=== PATIENT | male | born 1970 | race Caucasian/White ===

== ENCOUNTER 2020-02-29 06:56 | Outpatient (CLI) | payer MEDICAID, SELFPAY ==
[2020-02-29 07:29] LABS: Hematocrit 41.8 % (42.0-52.0); Hemoglobin 13.9 g/dL (14.0-18.0); Mean Corpuscular HGB Conc 33.3 g/dl (32-36); Mean Corpuscular Hemoglobin 27.3 pg (26-34); Mean Platelet Volume 9.8 fl (7.4-10.4); Platelet Count Result 272 k/mm3 (150-375); White Blood Count 11.6 K/mm3 (4.5-10.0)
[2020-02-29 07:40] LABS: Alanine Aminotransferase 29 U/L (4-50); Albumin Level 4.2 g/dL (3.5-5.1); Alkaline Phosphatase 111 U/L (38-126); Anion Gap 7 mmol/L (8-16); Aspartate Amino Transferase 25 U/L (17-59); Bilirubin,Total 0.4 mg/dL (0.2-1.3); Blood Urea Nitrogen 16 mg/dL (9-20); Calcium 9.6 mg/dL (8.4-10.2); Carbon Dioxide 30 mmol/L (22-30); Chloride 99 mmol/L (98-107); Cholesterol 141 mg/dL (0-200); Estimated Glomerular Filt Rate > 60; Glucose 111 mg/dL (75-110); HDL Direct 31 mg/dL; Potassium 4.5 mmol/L (3.4-5.0); Sodium 136 mmol/L (137-145); Triglycerides 84 mg/dL (<150)
[2020-02-29 07:51] LABS: LDL Cholesterol Direct 97 mg/dL
== END 2020-02-29 06:57 | disposition home or self-care (01) ==
PROVIDERS: PCP Family Medicine; Visit Provider Nurse Practitioner Family
DX: E78.2 Mixed hyperlipidemia (principal); I10 Essential (primary) hypertension
CPT/HCPCS: 36415; 80053; 80061; 84443; 85027

== ENCOUNTER 2020-03-12 21:50 | Observation (INO) | payer MEDICAID, SELFPAY ==
--- NOTE | ~2020-03-12 | US_ITS ---
EXAMINATION: US venous doppler [facility] DATE: 03/13/2020 08:59 INDICATION: Left lower limb pain TECHNIQUE: Grayscale ultrasound images without and with compression and Doppler ultrasound images of the left lower extremity veins were obtained. COMPARISON: None. FINDINGS: The visualized portions of left common femoral vein, profunda (deep) femoral vein, femoral vein, popl iteal vein, peroneal veins, posterior tibial veins, gastrocnemius vein and greater saphenous vein out flow are patent. Sensitivity is more limited in the veins of the calf as patient would not tolerate c ompression imaging. Subcutaneous edema at the left calf. IMPRESSION: 1. No deep venous thrombosis in the left lower limb. Reviewed, dictated and finalized at location A.
[2020-03-12 21:51] VITALS: BP 122/64; PULSE 122; RESP 20; TEMP 36.8; O2SAT 98
[2020-03-12 22:56] VITALS: BP 124/87; PULSE 120; RESP 24; O2SAT 97
--- NOTE | 2020-03-12 22:59 | ED.GENADULT ---
HPI - General Adult General Chief complaint: Extremity Injury, Lower Stated complaint: bilateral leg pain, cellulitis Time Seen by Provider: 03/12/20 22:37 Source: RN notes reviewed History of Present Illness HPI narrative: Patient presents to emergency department from home for left leg redness. Patient states that he has a history of cellulitis and lymphedema in his left lower extremity. Patient states that starting yesterday began to have redness and swelling in his left leg is progressively worsening with pain in the leg. He states that the redness goes from the ankle up just below the knee denies any fevers or chills chest pain shortness of breath or any other symptoms. States that current symptoms are similar to previous episodes of cellulitis Related Data Allergies Allergy/AdvReac Type Severity Reaction Status Date / Time metronidazole Allergy Unknown Unknown Verified 02/22/20 10:48 Cat Dander Allergy Unknown Wheezing Uncoded 10/23/19 09:01 Review of Systems Review of Systems: Narrative: Gen.: Denies fevers or chills ENT: Denies congestion Respiratory: Denies shortness of breath or cough CV: Denies chest pain or palpitations GI: Denies abdominal pain nausea, emesis or diarrhea Musculoskeletal: Denies back pain or muscle pain Neuro: Denies numbness, tingling, weakness or focal weakness Skin: See HPI Except as documented, all other systems reviewed and negative PMF Past Medical History Medical History (Updated 03/13/20 @ 00:26 by Brandon Montemayor DO) Essential hypertension Lymphedema Family History Family History Grandparent Cerebrovascular accident Father Family history of heart disease in male family member before age 55 Other Diabetes mellitus Family history of cardiovascular disease Social History Social History Smoking status: Never smoker Alcohol intake: current Exam Narrative: Exam Narrative: APPEARANCE: No acute distress, nontoxic, resting in bed EYES: EOMI HEENT: Normocephalic, atraumatic, OMM RESPIRATORY: No respiratory distress Clear to auscultation bilaterally with no rhonchi wheezing or rales. CARDIOVASCULAR: Regular rate and rhythm without murmurs rubs or gallops. ABDOMINAL: Soft, nontender, nondistended, no rebound or guarding MUSCULOSKELETAl: Moves all extremities. No clubbing, cyanosis there is 4+ edema the left lower extremity erythema just distal to the left knee down to the ankle that is circumferential no drainage, dorsalis pedis pulse 2+, neurovascular intact NEURO: Awake and alert. Following commands, speech normal, no focal deficits SKIN:: Warm, dry. No rashes lesions or abrasions PSYCHIATRIC: Normal affect/mood, Course Course Emergency Course: Discussed with Dr. Orta presentation work-up. Agrees with admission at this time Discussed with patient and family results of workup and diagnosis. Discussed need for admission. Patient and family understand and agree to current treatment plan Vital Signs Vital signs: Vital Signs Temperature 98.2 F 03/12/20 21:51 Pulse Rate 122 H 03/12/20 21:51 Respiratory Rate 20 03/12/20 21:51 Blood Pressure 122/64 03/12/20 21:51 Pulse Oximetry 98 03/12/20 21:51 Temperature 98.2 F 03/12/20 21:51 Pulse Rate 120 H 03/12/20 22:56 Respiratory Rate 24 H 03/12/20 22:56 Blood Pressure 124/87 03/12/20 22:56 Pulse Oximetry 97 03/12/20 22:56 Medical Decision Making Vital Signs Vital Signs: Vital Signs Temperature 98.2 F 03/12/20 21:51 Pulse Rate 122 H 03/12/20 21:51 Respiratory Rate 20 03/12/20 21:51 Blood Pressure 122/64 03/12/20 21:51 Pulse Oximetry 98 03/12/20 21:51 Temperature 98.2 F 03/12/20 21:51 Pulse Rate 120 H 03/12/20 22:56 Respiratory Rate 24 H 03/12/20 22:56 Blood Pressure 124/87 03/12/20 22:56 Pulse Oximetry 97 03/12/20 22:56 Lab Data Result
[2020-03-12] MEDS: SODIUM CHLORIDE 0.9% IV 1,000 ML 999 ML IV CONT (23:36)
[2020-03-12 23:43] LABS: Lactic Acid Reflex 1.2 mmol/L (0.7-2.1)
[2020-03-12 23:43] LABS: Alanine Aminotransferase 32 U/L (4-50); Albumin Level 4.2 g/dL (3.5-5.1); Alkaline Phosphatase 99 U/L (38-126); Anion Gap 11 mmol/L (8-16); Aspartate Amino Transferase 25 U/L (17-59); Bilirubin,Total 0.5 mg/dL (0.2-1.3); Blood Urea Nitrogen 21 mg/dL (9-20); Calcium 9.4 mg/dL (8.4-10.2); Carbon Dioxide 23 mmol/L (22-30); Chloride 100 mmol/L (98-107); Estimated CRCL calculation 225 ml/min; Estimated Glomerular Filt Rate > 60; Glucose 129 mg/dL (75-110); Potassium 4.5 mmol/L (3.4-5.0); Sodium 134 mmol/L (137-145)
[2020-03-12 23:44] LABS: Basophils Absolute Auto 0.1 K/mm3 (0.0-0.1); Basophils Percent Auto 0.2 % (0.2-1.2); Eosinophils Percent Auto 0.1 % (0-4.4); Hematocrit 40.8 % (42.0-52.0); Hemoglobin 13.5 g/dL (14.0-18.0); Immature Granulocyte Absolute 0.18 K/mm3 (0.00-0.031); Immature Granulocyte Percent A 0.7 % (0-0.5); Lymphocytes Absolute Auto 0.98 K/mm3 (0.9-3.2); Lymphocytes Percent Auto 3.6 % (18.3-44.2); Mean Corpuscular HGB Conc 33.1 g/dl (32-36); Mean Corpuscular Hemoglobin 27.5 pg (26-34); Mean Corpuscular Volume 83.1 fl (80-100); Mean Platelet Volume 10.6 fl (7.4-10.4); Monocytes Absolute Auto 1.3 K/mm3 (0.1-0.6); Neutrophils Absolute Auto 24.4 K/mm3 (1.3-6.7); Neutrophils Percent Auto 90.4 % (45.5-73.1); Platelet Count Result 284 k/mm3 (150-375); Red Blood Count 4.91 M/mm3 (4.6-6.20); Red Cell Distribution Width 15.2 % (11.5-14.5)
[2020-03-12 23:47] LABS: INR 1.1; Prothrombin Time 14.1 Seconds (11.1-14.7)
[2020-03-12 23:48] LABS: Partial Thromboplastin Time 28.7 SECONDS (22.3-36.8)
[2020-03-13] VITALS (13 sets, daily range): BP systolic 99–146; BP diastolic 58–81; PULSE 77–118; RESP 16–22; TEMP 35.8–37.2; O2SAT 92–100; BMI 72.7
--- NOTE | 2020-03-13 00:05 | ECG_ITS ---
Measurements Intervals [place] Rate: 108 P: 20 KS: 150 QRS: 24 QRSD: 113 T: 12 QT: 346 QTc: 464 Interpretive Statements SINUS TACHYCARDIA LOW QRS VOLTAGE IN PRECORDIAL LEADS MINIMAL Q WAVES- DIFFUSE LEADS ABNORMAL ECG Electronically Signed On 03-14-2020 14:01:33 CDT by Raymond Vaughn D.O.
--- NOTE | 2020-03-13 00:10 | PC.NURSE ---
assuming care of pt at this time, received report from renea larson
--- NOTE | 2020-03-13 01:09 | PM.IMHP ---
H&P: HPI History of Present Illness Date/Time: 03/13/20 01:09 Chief complaint: sepsis, L LE cellulitis Narrative: This is a 49 year old morbidly obese male with known history of chronic lymphedema and previous cellulitis who presented to the [facility] with a complaint of left lower extremity redness, pain, and worsening swelling over the past 2 days. The patient reports that he fell asleep in a recliner in the garage 2 days ago and when he woke up his left lower extremity was more red and swollen. He believes that the back of his LLE became more inflamed because of the weight of his leg that was compressing it. He also reports that he put a heating pad on his leg. He denies any fevers, chills, nausea, vomiting, diarrhea or other symptoms. Routine labs demonstrated an elevated WBC. The patient was started on IV ancef and we have been asked to admit him to the hospital for possible cellulitis. No other complaints. Review of Systems Review of Systems: All systems reviewed & are unremarkable except as noted in HPI and below PMFSH Past Medical History Medical History Asthma Essential hypertension Lymphedema Obstructive sleep apnea Tobacco dependence Family History Family History Grandparent Cerebrovascular accident Father Family history of heart disease in male family member before age 55 Other Diabetes mellitus Family history of cardiovascular disease Social History Social History Smoking status: Current every day smoker Alcohol intake: never Substance use: current Substance use type: marijuana Gender identity (if verbalized by the patient): Male Spiritual care concerns: No Comments past surgical history reviewed and noncontributory. Meds Home Medications and Allergies Home Medications Medication Instructions Recorded Confirmed Type albuterol sulfate 90 mcg/actuation 2 puff INHALATION Q4-6H PRN #8.5 gm 08/04/19 03/13/20 Rx aerosol inhaler lisinopril 40 mg tablet 40 mg PO DAILY #90 tablet 10/20/19 03/13/20 Rx tamsulosin 0.4 mg capsule 0.4 mg PO DAILY #30 cap 10/20/19 03/13/20 Rx furosemide 40 mg tablet 40 mg PO QAM #90 tablet 01/06/20 03/13/20 Rx ibuprofen 800 mg tablet 800 mg PO TID #90 tablet 02/01/20 03/13/20 Rx hydrocodone 5 mg-acetaminophen 325 1 tablet PO Q12H PRN #60 tablet 02/29/20 03/13/20 Rx mg tablet albuterol sulfate 2.5 mg INHALATION BID 03/13/20 03/13/20 History compression socks, x-large #2 ea 03/14/20 Rx Allergies Allergy/AdvReac Type Severity Reaction Status Date / Time metronidazole Allergy Unknown Unknown Verified 02/22/20 10:48 Cat Dander Allergy Unknown Wheezing Uncoded 10/23/19 09:01 Vital Signs Vital Signs - 24 hr 03/12/20 21:51 03/12/20 22:56 03/13/20 01:01 Temperature 36.8 C Pulse Rate 122 H 120 H 117 H Respiratory Rate 20 24 H 18 Blood Pressure 122/64 124/87 131/75 Pulse Oximetry 98 97 99 Exam Const: General: cooperative, no acute distress, alert, awake and ill appearing chronically Nutritional Appearance: obese morbidly obese Orientation/consciousness: patient oriented x3 HENMT: Head: normal to inspection General nose exam: Normal external nose present Face and sinus: normal facial exam Mouth: Yes Normal oral and palatal mucosa present and Yes oropharynx normal Eyes: Pupils: Equal, round and reactive pupils present EOM: EOMs intact bilaterally Neck: Neck: supple and no JVD Thyroid: thyroid normal Lymphatic: lymphedema (b/l lower extremities++ ) Resp: Effort & Inspection: normal respiratory effort Auscultation: clear to auscultation bilaterally Cardio: Rate: regular rate Rhythm: regular rhythm Heart sounds: no murmurs GI: Inspection: normal to inspection Auscultation: normal bowel sounds Skin: General skin exam: erythema (LLE++ ) Lesions: other (healin
--- NOTE | 2020-03-13 01:37 | ADMGEN ---
This patient, Ole Kilgore, was admitted to Medical Room 260- 0130. Patient/family oriented to hospital policies and general routines including ID bracelet, bed and alarms, visiting hours, pain management, procedures, bathroom and other care routines, personal items, smoking policy, room service/diet, and visiting hours. Information on how to activate the Rapid Response Team has been discussed. Patient/Family are encouraged to report perceived risks to care and to ask questions if they do not understand what they are told or what they should do.
[2020-03-13] MEDS: SODIUM CHLORIDE 0.9% IV 1,000 ML 125 ML IV CONT ×3 (02:07→19:40)
[2020-03-13] MEDS: ALBUTEROL SULFATE (*SP) AEROSOL 1 PUFF 2 PUFF INHALATION (08:09)
[2020-03-13] MEDS: ENOXAPARIN 40 MG/0.4 ML SYRINGE SUB-Q (08:18)
[2020-03-13] MEDS: FUROSEMIDE 40 MG TABLET PO (08:18)
[2020-03-13] MEDS: TAMSULOSIN HCL 0.4 MG CAPSULE PO (08:19)
[2020-03-13] MEDS: HYDROcodone/acetaminophen (*CRX) 5-325 MG TABLET 1 TAB PO (08:23)
[2020-03-13 09:02] LABS: Basophils Percent Auto 0.2 % (0.2-1.2); Eosinophils Absolute Auto 0.1 K/mm3 (0-0.3); Eosinophils Percent Auto 0.3 % (0-4.4); Hemoglobin 12.4 g/dL (14.0-18.0); Immature Granulocyte Absolute 0.12 K/mm3 (0.00-0.031); Immature Granulocyte Percent A 0.6 % (0-0.5); Lymphocytes Absolute Auto 1.08 K/mm3 (0.9-3.2); Lymphocytes Percent Auto 5.8 % (18.3-44.2); Mean Corpuscular HGB Conc 32.6 g/dl (32-36); Mean Corpuscular Hemoglobin 27.6 pg (26-34); Mean Corpuscular Volume 84.4 fl (80-100); Mean Platelet Volume 10.2 fl (7.4-10.4); Monocytes Absolute Auto 0.9 K/mm3 (0.1-0.6); Monocytes Percent Auto 4.6 % (2.6-8.5); Neutrophils Absolute Auto 16.5 K/mm3 (1.3-6.7); Neutrophils Percent Auto 88.5 % (45.5-73.1); Platelet Count Result 267 k/mm3 (150-375); Red Cell Distribution Width 15.4 % (11.5-14.5); White Blood Count 18.6 K/mm3 (4.5-10.0)
[2020-03-13 09:17] LABS: CRP 8.3 mg/dL (<1.0)
[2020-03-13 09:23] LABS: Hemoglobin A1C 5.3 % (<5.7)
--- NOTE | 2020-03-13 10:25 | PM.IMPN ---
Progress Note: A&P Assessment and Plan (1) Sepsis: Qualifiers: Sepsis acute organ dysfunction status: without acute organ dysfunction Sepsis type: sepsis due to unspecified organism Qualified Code(s): A41.9 - Sepsis, unspecified organism Code(s): A41.9 - Sepsis, unspecified organism Status: Acute Assessment and Plan: SIRS criteria were met given tachycardia and leukocytosis. Source is LLE cellulitis. Blood cultures were obtained and are pending. He appears adequately hydrated. Continue IV antibiotics. He is hemodynamically stable. Monitor vital signs and urine output closely. (2) Cellulitis of left lower leg: Code(s): L03.116 - Cellulitis of left lower limb Status: Acute Assessment and Plan: LLE venous doppler was ordered and pending. Continue IV cefazolin for cellulitis. Continue analgesics as needed. Blood cultures were obtained and are pending. Continue to monitor. Trend CRP and WBC. He notes significant improvement in his symptoms. (3) Essential hypertension: Code(s): I10 - Essential (primary) hypertension Status: Chronic Assessment and Plan: Blood pressure control is reasonable. Continue furosemide and lisinopril. Continue to monitor. (4) Lymphedema: Code(s): I89.0 - Lymphedema, not elsewhere classified Status: Chronic Assessment and Plan: Chronic. Continue Lasix PO. He will benefit from follow-up with vascular surgery. He was referred by his PCP. I discussed that he would benefit from lymphedema pumps and lymphedema massage and encouraged him to see the specialist. He needs to continue leg elevation and leg exercises. (5) Tobacco dependence: Code(s): F17.200 - Nicotine dependence, unspecified, uncomplicated Status: Acute Assessment and Plan: Smoking cessation was discussed with the patient. He verbalized understanding. He declines the need for a nicotine patch. (6) Elevated glucose: Code(s): R73.09 - Other abnormal glucose Status: Acute Assessment and Plan: Check hemoglobin A1c. (7) Bilateral chronic knee pain: Code(s): M25.561 - Pain in right knee; M25.562 - Pain in left knee; G89.29 - Other chronic pain Status: Chronic Assessment and Plan: Continue prior to admission ibuprofen and norco as needed. (8) Morbid (severe) obesity due to excess calories: Code(s): E66.01 - Morbid (severe) obesity due to excess calories Status: Chronic Assessment and Plan: I discussed the importance of weight loss. He notes that he makes poor diet choices. He needs to implement calorie restriction. He has considered seeing a bariatric surgeon and I advised that this may be beneficial for him. He was advised to discuss this with his PCP. (9) Asthma: Code(s): J45.909 - Unspecified asthma, uncomplicated Status: Chronic Assessment and Plan: Continue albuterol PRN. (10) Obstructive sleep apnea: Code(s): G47.33 - Obstructive sleep apnea (adult) (pediatric) Status: Chronic Assessment and Plan: Continue CPAP titrated to home settings. Subjective Date/time seen: 03/13/20 10:25 Mr. Kilgore is a 49 y.o. male with PMH significant for morbid obesity (BMI 72.7), chronic lymphedema, current 6 pack per month smoker, hx of cellulitis, KIKA on CPAP, BPH, HTN, and asthma who is seen in follow-up for LLE cellulitis. He is feeling much better today. He notes that the left leg feels less tight, swollen, and hot today and he is no longer having pins/needle sensation. He reports chronic knee discomfort due to his osteoarthritis and requests ibuprofen. He has a mild frontal headache and requests tylenol as that often provides the most benefit. He denies subjective fever and chills. He denies dyspnea and chest pain. He is tolerating his diet. He notes that his bowels are regular. He has no voiding concerns
[2020-03-13] MEDS: IBUPROFEN 600 MG TABLET PO (11:10)
[2020-03-13] MEDS: lisinopriL 20 MG TABLET 40 MG PO (11:11)
[2020-03-13] MEDS: ALBUTEROL SULFATE NEB 2.5 MG/3 ML INH INHALATION (21:09)
[2020-03-14 05:41] LABS: Basophils Percent Auto 0.2 % (0.2-1.2); Eosinophils Absolute Auto 0.2 K/mm3 (0-0.3); Eosinophils Percent Auto 1.6 % (0-4.4); Hematocrit 39.1 % (42.0-52.0); Hemoglobin 12.7 g/dL (14.0-18.0); Immature Granulocyte Absolute 0.12 K/mm3 (0.00-0.031); Immature Granulocyte Percent A 0.9 % (0-0.5); Lymphocytes Absolute Auto 1.41 K/mm3 (0.9-3.2); Lymphocytes Percent Auto 11.1 % (18.3-44.2); Mean Corpuscular HGB Conc 32.5 g/dl (32-36); Mean Corpuscular Hemoglobin 27.5 pg (26-34); Mean Corpuscular Volume 84.8 fl (80-100); Mean Platelet Volume 10.6 fl (7.4-10.4); Monocytes Absolute Auto 1.7 K/mm3 (0.1-0.6); Monocytes Percent Auto 13.1 % (2.6-8.5); Neutrophils Absolute Auto 9.3 K/mm3 (1.3-6.7); Neutrophils Percent Auto 73.1 % (45.5-73.1); Platelet Count Result 214 k/mm3 (150-375); Red Blood Count 4.61 M/mm3 (4.6-6.20); Red Cell Distribution Width 15.2 % (11.5-14.5); White Blood Count 12.7 K/mm3 (4.5-10.0)
[2020-03-14 06:00] VITALS: BP 117/59; PULSE 88; RESP 21; TEMP 36.6; O2SAT 100
[2020-03-14 06:11] LABS: Anion Gap 9 mmol/L (8-16); Blood Urea Nitrogen 13 mg/dL (9-20); CRP > 9.0 mg/dL (<1.0); Calcium 8.9 mg/dL (8.4-10.2); Carbon Dioxide 26 mmol/L (22-30); Chloride 101 mmol/L (98-107); Estimated CRCL calculation 225 ml/min; Estimated Glomerular Filt Rate > 60; Glucose 91 mg/dL (75-110); Potassium 4.2 mmol/L (3.4-5.0); Sodium 136 mmol/L (137-145)
[2020-03-14] MEDS: lisinopriL 20 MG TABLET 40 MG PO (08:36)
[2020-03-14] MEDS: TAMSULOSIN HCL 0.4 MG CAPSULE PO (08:36)
[2020-03-14] MEDS: FUROSEMIDE 40 MG TABLET PO (08:36)
[2020-03-14] MEDS: ENOXAPARIN 40 MG/0.4 ML SYRINGE SUB-Q (08:36)
[2020-03-14] MEDS: IBUPROFEN 600 MG TABLET PO ×2 (08:40→23:11)
[2020-03-14 09:33] VITALS: PULSE 90; RESP 20
[2020-03-14] MEDS: ALBUTEROL SULFATE NEB 2.5 MG/3 ML INH INHALATION (09:33)
--- NOTE | 2020-03-14 13:18 | PM.IMPN ---
Progress Note: A&P Assessment and Plan (1) Sepsis: Qualifiers: Sepsis acute organ dysfunction status: without acute organ dysfunction Sepsis type: sepsis due to unspecified organism Qualified Code(s): A41.9 - Sepsis, unspecified organism <Emilee Henriquez PA-C - Last Filed: 03/14/20 16:44> Code(s): A41.9 - Sepsis, unspecified organism <Emilee Henriquez PA-C - Last Filed: 03/14/20 16:44> Status: Acute <Emilee Henriquez PA-C - Last Filed: 03/14/20 16:44> Assessment and Plan: SIRS criteria were met given tachycardia and leukocytosis. Source is LLE cellulitis. Blood cultures were obtained and demonstrate NGTD. He appears adequately hydrated. Continue IV antibiotics. He is hemodynamically stable. Monitor vital signs and urine output closely. <Emilee Rogerenio PA-C - Last Filed: 03/14/20 16:44> (2) Cellulitis of left lower leg: Code(s): L03.116 - Cellulitis of left lower limb <Emilee Henriquez PA-C - Last Filed: 03/14/20 16:44> Status: Acute <Emilee Henriquez PA-C - Last Filed: 03/14/20 16:44> Assessment and Plan: LLE venous doppler was ordered and negative for DVT. Continue IV cefazolin for cellulitis (day 2 - initiated 03/13). Continue analgesics as needed. Blood cultures were obtained and show no growth to date. Continue to monitor. WBC has improved. CRP is mildly elevated from 8.3 to 9.0. He notes significant improvement in his symptoms. Continue to trend CBC and CRP. Hopeful discharge in the next 1-2 days on PO antibioitics. <Emilee Hernández Asaemory PA-C - Last Filed: 03/14/20 16:44> (3) Essential hypertension: Code(s): I10 - Essential (primary) hypertension <Emilee Hernández Asaemory PA-C - Last Filed: 03/14/20 16:44> Status: Chronic <Emilee Hernández Asaturian, PA-C - Last Filed: 03/14/20 16:44> Assessment and Plan: Blood pressure control is reasonable. Continue furosemide and lisinopril. Continue to monitor. <Emilee Henriquez ARI - Last Filed: 03/14/20 16:44> (4) Lymphedema: Code(s): I89.0 - Lymphedema, not elsewhere classified <Emilee RogerDAVID steenC - Last Filed: 03/14/20 16:44> Status: Chronic <Emilee Henriquez ELENA-C - Last Filed: 03/14/20 16:44> Assessment and Plan: Chronic. Continue Lasix PO. He will benefit from follow-up with vascular surgery. He was referred by his PCP. I discussed that he would benefit from lymphedema pumps and lymphedema massage and encouraged him to see the specialist. He needs to continue leg elevation and leg exercises. <Emilee Hernández AsaARI cat - Last Filed: 03/14/20 16:44> (5) Tobacco dependence: Code(s): F17.200 - Nicotine dependence, unspecified, uncomplicated <Emilee HenriquezDAVIDC - Last Filed: 03/14/20 16:44> Status: Acute <Emilee HenriquezARI - Last Filed: 03/14/20 16:44> Assessment and Plan: Smoking cessation was discussed with the patient. He verbalized understanding. He declines the need for a nicotine patch. <Emilee Hernández AsaARI cat - Last Filed: 03/14/20 16:44> (6) Elevated glucose: Code(s): R73.09 - Other abnormal glucose <Emilee RogerDAVID steenC - Last Filed: 03/14/20 16:44> Status: Acute <Emilee HenriquezARI - Last Filed: 03/14/20 16:44> Assessment and Plan: Hemoglobin A1c was 5.3%. <Emilee Hernández AsaDAVID catC - Last Filed: 03/14/20 16:44> (7) Bilateral chronic knee pain: Code(s): M25.561 - Pain in right knee; M25.562 - Pain in left knee; G89.29 - Other chronic pain <Emilee Henriquez PA-C - Last Filed: 03/14/20 16:44> Status: Chronic <Emilee Henriquez PA-C - Last Filed: 03/14/20 16:44> Assessment and Plan: Continue prior to admission ibuprofen and norco as needed. <Emilee Henriquez PA-C - Last Filed: 03/14/20 16:44> (8) Morbid (severe) obesity du
[2020-03-14 14:00] VITALS: BP 127/76; PULSE 106; RESP 18; TEMP 36; O2SAT 96
--- NOTE | 2020-03-14 15:56 | PC.NURSE ---
Care resumed from previous [facility] Dhaliwal.
[2020-03-14 19:50] VITALS: PULSE 83; O2SAT 95
[2020-03-14 21:00] VITALS: PULSE 83; RESP 18; O2SAT 95
[2020-03-14 22:00] VITALS: BP 128/71; PULSE 91; RESP 21; TEMP 36.9; O2SAT 100
[2020-03-15 05:57] LABS: Basophils Percent Auto 0.4 % (0.2-1.2); Eosinophils Absolute Auto 0.3 K/mm3 (0-0.3); Eosinophils Percent Auto 2.3 % (0-4.4); Hematocrit 36.5 % (42.0-52.0); Hemoglobin 12.1 g/dL (14.0-18.0); Immature Granulocyte Absolute 0.08 K/mm3 (0.00-0.031); Immature Granulocyte Percent A 0.7 % (0-0.5); Lymphocytes Absolute Auto 1.66 K/mm3 (0.9-3.2); Lymphocytes Percent Auto 15.6 % (18.3-44.2); Mean Corpuscular HGB Conc 33.2 g/dl (32-36); Mean Corpuscular Hemoglobin 27.8 pg (26-34); Mean Corpuscular Volume 83.9 fl (80-100); Mean Platelet Volume 10.5 fl (7.4-10.4); Monocytes Absolute Auto 1.4 K/mm3 (0.1-0.6); Monocytes Percent Auto 13.3 % (2.6-8.5); Neutrophils Absolute Auto 7.2 K/mm3 (1.3-6.7); Neutrophils Percent Auto 67.7 % (45.5-73.1); Platelet Count Result 248 k/mm3 (150-375); Red Blood Count 4.35 M/mm3 (4.6-6.20); Red Cell Distribution Width 15.1 % (11.5-14.5); White Blood Count 10.7 K/mm3 (4.5-10.0)
[2020-03-15 06:00] VITALS: BP 134/69; PULSE 86; RESP 20; TEMP 36.8; O2SAT 99
[2020-03-15 06:08] LABS: Anion Gap 4 mmol/L (8-16); Blood Urea Nitrogen 12 mg/dL (9-20); Calcium 8.6 mg/dL (8.4-10.2); Carbon Dioxide 30 mmol/L (22-30); Chloride 103 mmol/L (98-107); Estimated CRCL calculation 259 ml/min; Estimated Glomerular Filt Rate > 60; Glucose 102 mg/dL (75-110); Potassium 4.5 mmol/L (3.4-5.0); Sodium 137 mmol/L (137-145)
[2020-03-15] MEDS: lisinopriL 20 MG TABLET 40 MG PO (08:44)
[2020-03-15] MEDS: ENOXAPARIN 40 MG/0.4 ML SYRINGE SUB-Q (08:44)
[2020-03-15] MEDS: TAMSULOSIN HCL 0.4 MG CAPSULE PO (08:45)
[2020-03-15] MEDS: FUROSEMIDE 40 MG TABLET PO (08:45)
[2020-03-15] MEDS: ALBUTEROL SULFATE NEB 2.5 MG/3 ML INH INHALATION (08:46)
[2020-03-15 08:48] VITALS: PULSE 101; RESP 24
[2020-03-15] MEDS: IBUPROFEN 600 MG TABLET PO (08:49)
[2020-03-15 14:00] VITALS: BP 115/82; PULSE 101; RESP 16; TEMP 36.6; O2SAT 100
--- NOTE | 2020-03-15 14:54 | PM.DS ---
DS: Admitting Diagnosis Admitting Diagnosis Admitting Diagnosis: sepsis, L LE cellulitis DS: Discharge Diagnosis Discharge Diagnosis (1) Cellulitis of left lower leg: Code(s): L03.116 - Cellulitis of left lower limb Status: Acute Assessment and Plan: IV antibiotics for cellulitis, received IV Rocephin since 03/13. LE venous doppler US ruled out DVT - none found. patient stated pain had resolved and was now only with deep palpitaiton to posterior calf of left leg. using PRN Motrin for pain. blood cultures x2 showed no growth. patient reports history of MRSA in the past and states that he likely caused this cellulitis due to his picking at scabs on his leg will discharge patient on Doxyclycline for 2 weeks and Florastor. Instructed patient to follow up with his PCP in 3-7 days. Orders placed for patient to F/U with PT at lymphedema and wound clinic. Patent requested. Patient is to F/U Vascular Surgeon regarding possible causes of lymphedema and persistent wounds. Patient stated that he would F/U with his PCP and complete this referral visits. (2) Sepsis: Qualifiers: Sepsis acute organ dysfunction status: without acute organ dysfunction Sepsis type: sepsis due to unspecified organism Qualified Code(s): A41.9 - Sepsis, unspecified organism Code(s): A41.9 - Sepsis, unspecified organism Status: Acute Assessment and Plan: w/ tachycardia and leukocytosis at admission. HR improved, 80s today. Mag level 2.0 WBC improved from 27 to 10.7 Afebrile. Completed IV rocephin course. Discharged on Doxycycline for 2 weeks and Florastor. Source of sepsis appears to be LLE cellulitis. blood cultures x2 showed no growth. (3) Essential hypertension: Code(s): I10 - Essential (primary) hypertension Status: Chronic Assessment and Plan: Stable blood pressure. Continue lisinopril (4) Lymphedema: Code(s): I89.0 - Lymphedema, not elsewhere classified Status: Chronic Assessment and Plan: Chronic. Continue Lasix PO. Instructed patient to follow up with his PCP in 3-7 days. instructed to wear his compression stockings daily as well as to elevate . Orders placed for patient to F/U with PT at lymphedema and wound clinic. Patent requested. Patient is to F/U Vascular Surgeon regarding possible causes of lymphedema and persistent wounds. Patient stated that he would F/U with his PCP and complete this referral visits. DS: Summary Time Spent with Patient Time attestation: Total time spent providing and/or coordinating discharge services:90 minutes. Exam Narrative: Exam Narrative: General: Pleasant, well-developed, morbidly obese 49 y.o. male HEENT: Normocephalic and atraumatic. Corrective lenses in place. Oral mucosa moist. Crowded oropharynx. Neck: Supple. Large neck circumference. Cardiac: Regular rate and rhythm. S1 and S2 normal. Lungs: Effort normal without increased work of breathing. Lungs are clear to auscultation bilaterally without rales, rhonchi, or wheezes. Abdomen: Normoactive bowel sounds. Abdomen soft, non-distended, and non-tender. Musculoskeletal: No acute joint inflammation. Extremities: Below-knee LLE circumference grossly 2x RLE with skin fold just above left ankle. Edema soft and easily compressed. Slight calf tenderness with deep palpation. DP and PT palpable, pulses on left are harder to palpate due to significant foot pitting edema but are present. Neurological: Alert. No focal deficits to casual conversation. Speech is clear. Skin: Warm and dry. Several excoriations on the distal lower extremities bilaterally at sites of old blisters with scabs in place. LLE Erythema extends from the ankle to just below the knee on the left with calor present. Erythema has improved with redness resolving and pinkened coloring remains. He has chronic hyperpigmentation due to lymphedema and I only see mild erythema from the posterior of his calf leg toda
== END 2020-03-15 16:30 | disposition home or self-care (01) ==
LOC: ANHED 03-13 00:26 → ANH2MED 03-13 01:05
PROVIDERS: Physician Assistant; Admitting Provider Family Medicine; Emergency Provider Emergency Medicine; PCP Family Medicine; Visit Provider Nurse Practitioner
DX: A41.9 Sepsis, unspecified organism (principal); L03.116 Cellulitis of left lower limb; E66.01 Morbid (severe) obesity due to excess calories; I89.0 Lymphedema, not elsewhere classified; I10 Essential (primary) hypertension; G47.33 Obstructive sleep apnea (adult) (pediatric); G89.29 Other chronic pain; F17.290 Nicotine dependence, other tobacco product, uncomplicated; J45.909 Unspecified asthma, uncomplicated; R73.09 Other abnormal glucose; M79.605 Pain in left leg; Z23 Encounter for immunization; Z68.45 Body mass index [BMI] 70 or greater, adult
CPT/HCPCS: 36415; 80048; 80053; 83036; 83605; 83735; 85025; 85610; 85730; 86140; 87040; 90471; 90653; 93005; 93971; 94640; 96361; 96365; 96366; 96372; 99285; A9270; G0008; G0378; G0379; J0690; J1650; J7030

== ENCOUNTER 2020-05-23 08:00 | Outpatient (RCR) | payer MEDICAID, SELFPAY ==
--- NOTE | 2020-04-12 10:05 | PTOPEVAL ---
PHYSICAL THERAPY EVALUATION AND PLAN OF TREATMENT 04-12-2020 Thank you for referring Ole Kilgore to [facility].? He is scheduled to be seen for therapy? 3-5 x/week for 5 weeks. Please review, sign, date and return this plan of care BAMBI. I agree with and certify that the following plan of care is medically necessary. Referring Physician Date Attending Provider: Kandi Santoro NP *PT Outpatient Evaluation Start: 04/12/20 08:58 Document 04/12/20 08:50 SELENA (Rec: 04/12/20 10:05 SELENA [id number]) Therapy Assessment Status Assessment Status Assessment Status Evaluation Outpatient Past Medical History Past Medical History Source of Past Medical History Patient Neurological History Hx Seizures Yes: one time at 17 yr old from injury Cardiovascular History Hx Hypertension Yes: ON MEDICATIONS Respiratory History Hx Asthma Yes Hx Chronic Obstructive Pulmonary Disease Yes (COPD) Hx Sleep Apnea Yes: HOME C-PAP Gastrointestinal History Hx Gastrointestinal Disorders No Significant History Genitourinary History Hx Urinary Tract Infection Yes: history of Musculoskeletal History Hx Arthritis Yes: KNEES, WRISTS Hx Fractures Yes: FX RIGHT FOREARM Hematological History Hx Hematological Disorders No Significant History Endocrine History Hx Endocrine Disorders No Significant History HEENT History Hx HEENT Disorders No Significant History Integumentary History Hx Cellulitis Yes: L LE multiple times and once in R LE Reproductive History Hx Reproductive Disorders No Significant History Psychosocial History Hx Psychiatric Disorders No Significant History Pain History Has Past Pain Affected Your Daily Life Yes History of Long-Term Prescription Pain Yes Medication Use (Opiates) Anesthesia History Hx Anesthesia Reactions No Significant History Other History Hx MRSA Yes Hx Other Medical Conditions Yes: obesity Evaluation Information Problem Diagnosis L LE lymphedema Onset February- hospitalization Subjective Information cellulitis with Query Text:As Reported By Patient/ hospitalization Family Prior Level of Function Activity Level (Last 3 Months) Occupation not working outside home/on disability Home Setting Home Type House Living Situation With Friend,With Parent Mobility Assistive Devices (Used Last 3 None Months) Comments Additional Prior Level of Function limited walking and standing Comments
--- NOTE | 2020-04-21 08:42 | PCPTNOTE ---
pt called 10 minutes after his appt time, cancel today appt, stating he overslept and is not feeling well.
--- NOTE | 2020-05-23 09:14 | PTOPEVAL ---
PHYSICAL THERAPY DISCHARGE 05-23-2020 Refer to the clinical summary below. The goals were achieved, except strength with supine SLR and circumferential measurement of leg. Thank you for referring Ole Kilgore to [facility].? Please review, sign, date and return this discharge BAMBI. I agree with and certify that the following plan of care is medically necessary. Referring Physician Date Attending Provider: Kandi Santoro, GRAPHICS COORDINATOR Document 05/23/20 08:00 SELENA (Rec: 05/23/20 09:08 SELENA [id number]) Assessment Status Discharge Subjective Information Ole reports: is doing well Query Text:As Reported By Patient/ with the [facility]; leg is much Family better; walking has improved in 10-20% distance and pain of leg is less; is doing his self massage and putting lotion on his leg- checking his skin daily; agrees to discharge from PT services. Pain Assessment Timing of Pain Assessment Timing of Pain Assessment Assessment Pain Scale Pain Scale Used Numeric (1 - 10) Self Report Pain Assessment Bilateral Knee(s) Reported Pain Level 2 Pain Frequency Chronic Lowest Pain Intensity 0 Greatest Pain Intensity 7 Pain Aggravating Factors Walking,Weight Bearing/ Standing Other Pain Aggravating Factors reported walking tolerance few minutes Pain Score Pain Score 2: Self Report Interventions Used Interventions Used By Clinicians Education,Exercise Lower Extremity Range of Motion General Lower Extremity Range of Motion Gross Lower Extremity Range of Motion L knee flexion in sitting 110' Comments ; Lower Extremity Muscle Strength Testing General Lower Extremity Strength Gross Lower Extremity Strength supine : L SLR x 10 reps; able to lift legs on/off mat without assist; Lymphedema Evaluation Skin Inspection Location Left Lower Extremity,Right Lower Extremity Skin Observations Absence of Leg Hair,Lipedema, Obesity Lymphedema Stage II Skin Inspection Comment no fibrotic tissue over lower leg or thigh; medial lobules with slight redness, no fibrotic tissue; no edema dorsum of foot; LE Circumferential Measurement Left LE Lymphedema Side Left Metatarsal Heads (cm) 27 Figure 8 of Ankle (cm) 59 8 cm From Bottom of Foot (cm) 28.6 12 cm From Bottom of Foot (cm) 32.5 16
== END 2020-05-25 12:01 | disposition home or self-care (01) ==
LOC: ANHPT 08:00
PROVIDERS: PCP Family Medicine; Visit Provider Nurse Practitioner
DX: I89.0 Lymphedema, not elsewhere classified (principal); L03.116 Cellulitis of left lower limb; L03.314 Cellulitis of groin
CPT/HCPCS: 29581; 97110; 97140; 97161